=== PATIENT | male | born 1990 | race Caucasian/White ===

== ENCOUNTER 2017-10-17 14:41 | Outpatient (CLI) | payer OTHER | END 2017-10-17 14:42 | disposition home or self-care (01) | LOC: CTENTCT 14:41 | PROVIDERS: ATTEND Specialist | DX: J32.9 Chronic sinusitis, unspecified (principal) | CPT/HCPCS: 70486 ==

== ENCOUNTER 2017-10-20 09:08 | Day surgery (SDC) | payer OTHER ==
[2017-10-19 16:21] VITALS: BMI 36.2
[2017-10-20] MEDS ORDERED: Oxymetazoline HCl 0.05% ( 15 ML ) ONE (09:36)
[2017-10-20] MEDS ORDERED: Ciprofloxacin 0.2% Otic ONE ×2 (11:59)
[2017-10-20] MEDS ORDERED: Lidocaine 1% w/Epinephrine 1:200K 30 ML VIAL ONE (11:59)
[2017-10-20] MEDS ORDERED: Fentanyl 100 MCG/2 ML VIAL ONE (12:05)
[2017-10-20] MEDS ORDERED: Ondansetron HCl/PF 4 MG/2 ML Vial ONE ×2 (12:05→16:42)
[2017-10-20] MEDS ORDERED: Midazolam HCl 2 mg/2 ml Vial ONE (12:35)
[2017-10-20] MEDS ORDERED: methylPREDNISolone Acetate 40 mg/ml Vial ONE (14:01)
[2017-10-20] MEDS ORDERED: Hydrocodone-Acetamin 15 ML UDCUP ONE (16:21)
[2017-10-20] MEDS ORDERED: diphenhydrAMINE 50 MG/ML VIAL ONE (16:42)
[2017-10-20] MEDS ORDERED: PROPOFOL 200 MG/20 ML VIAL ONE (16:42)
[2017-10-20] MEDS ORDERED: Lidocaine 1% PF 5 ML VIAL ONE (16:42)
[2017-10-20] MEDS ORDERED: Glycopyrrolate 0.2 MG/ML 5 ML SYRINGE ONE (16:42)
[2017-10-20] MEDS ORDERED: Dexamethasone 20 MG/5 ML VIAL ONE (16:42)
[2017-10-20] MEDS ORDERED: PHENYLEPHRINE-NS 100 MCG/ML 10 ML SYRINGE ONE (16:42)
--- NOTE | 2017-10-20 18:06 | OP ---
PREOPERATIVE DIAGNOSES: Chronic sinusitis, reactive airways disease, nasal polyposis, chronic sinusi tis, hypertrophic inferior turbinates. POSTOPERATIVE DIAGNOSES: Chronic sinusitis, reactive airways disease, nasal polyposis, chronic sinus itis, hypertrophic inferior turbinates. PROCEDURES PERFORMED: 1. Stereotactic image guidance surgery using fusion. 2. Bilateral nasal endoscopy with maxillary antrostomy with removal of tissue. 3. Bilateral nasal endoscopy with sphenoidotomy with removal of tissue. 4. Bilateral nasal endoscopy with frontal sinusotomy with removal of tissue 5. Bilateral nasal endoscopy with total ethmoidectomy. 6. Bilateral nasal endoscopy with submucosal resection of inferior turbinates. PROCEDURE IN DETAIL: After consent was obtained, the patient was identified, brought to the operatin g room, and placed on the operating room table in the supine position. Consent was obtained, notifyi ng the patient of the possibility of additional infections, bleeding, brain injury, and eye/orbital i njury. The patient was placed on the operating room table, and general endotracheal anesthesia and i ntravenous access was obtained. The patient was then positioned, prepped and draped for endoscopic s inus surgery. Nasal preparation included trimming nasal vestibular hairs and spraying in topical Afr in. We then placed Afrin topical solution on nasal pledgets and strategically located them intranasa lly. The perinasal mucosa was injected with 1% lidocaine with 1:100,000 epinephrine in the submucope richondrial plane of the septum, lateral nasal wall, and anterior to the uncinate. The patient was t hen prepped and draped in a sterile fashion and positioned for endoscopic sinus surgery. Maxillary Antrostomy: The uncinate was then identified and the extent of the uncinate was appreciated by out-fracturing the uncinate with the ball-tip probe. We then used the sickle blade to disarticulate the uncinate from the lateral nasal wall. This was then removed with straight biting and upbiting punches with the remaining shrouds of mucosa and bony septum removed with the micro-debr ider. The natural os of the maxillary sinus was then identified and enlarged with the maxillary punc hes and back biting forceps. Sphenoidotomy: The anterior face of the sphenoid was identified and entered in its extreme anteroinferior aspect. A sphenoid punch was then used to enlarge the sphenoidotomy and no injury to the optic nerve or internal carotid artery occurred. Endoscopic Sinus Surgery: With the 0-degree endoscope, the patient underwent systematic nasal endosc opy. There were no suspicious internasal masses or lesions identified. We then focused our attentio n to the osteomeatal complex region under the middle turbinate. Total Ethmoidectomy: The anterior face of the ethmoid bulla was entered and with the micro-debrider, dissection continued posteriorly to the ground lamella. The limits of dissection inc luded the insertion of the middle turbinate, medial orbital wall, and base of skull. We similarly id entified the frontal recess and removed shrouds of bone and debris in that region to obtain patency i nto the agger nasi region and frontal recess. We then entered the ground lamella and its anteroinfer ior aspect and proceeded posteriorly, opening the posterior ethmoid air-cell system. Again, the limi ts of dissection included the base of skull and medial orbital wall. Outfracture of the Inferior Turbinates: The inferior turbinates were visualized under endoscopic vis ualization and outfractured with the elevator. The inferolateral edge of the inferior turbinate was then cauterized along its length with the suction cautery without difficulty. Outfracture & Cautery of the Inferior Turbinates: The inferior turbinates were visualized with a 0-d egree endoscope and outfractured with a Chris elevator. The inferior medial aspect was cauterized wi th the electrocautery. Hemostasis was obtained. After adequate airway was established, we turned ou r attention to the contralateral side and used a similar procedure. Again, a Chris elevator was used to outfracture inferior turbinates under endoscopic visualization. With a suction cautery, the free inferior medial aspect was cauterized under direct visualization along the length of the inferior tu rbinate. At this point, we then turned our attention to the contralateral side and proceeded with endoscopic s inus surgery. At the completion of the case, Rice keel splints were placed in the ethmoid cavities after the ethmoi dectomy. There were no complications. The patient tolerated the procedure well and was discharged t o the recovery room in stable condition prior to return to the preoperative Day Stay with [facility]. Prescriptions for pain medication and antibiotics were provided. The patient received intramuscular Depo-Medrol during the case. FINDINGS: Patient had extensive polyps and chronic bony changes due to the expansile nature of the p olyps. They were markedly inflamed and there was purulence encountered in both maxillary sinuses and sphenoid sinuses.
== END 2017-10-20 17:01 | disposition home or self-care (01) ==
LOC: SDC 09:08
PROVIDERS: ATTEND Specialist
PROC: 09TV8ZZ Resection of Left Ethmoid Sinus, Via Natural or Artificial Opening Endoscopic (ICD-10-PCS; principal; 2017-10-20)
PROC: 09BX8ZZ Excision of Left Sphenoid Sinus, Via Natural or Artificial Opening Endoscopic (ICD-10-PCS; principal; 2017-10-20)
PROC: 09SL8ZZ Reposition Nasal Turbinate, Via Natural or Artificial Opening Endoscopic (ICD-10-PCS; principal; 2017-10-20)
PROC: 09BQ8ZZ Excision of Right Maxillary Sinus, Via Natural or Artificial Opening Endoscopic (ICD-10-PCS; principal; 2017-10-20)
PROC: 09TU8ZZ Resection of Right Ethmoid Sinus, Via Natural or Artificial Opening Endoscopic (ICD-10-PCS; principal; 2017-10-20)
PROC: 8E09XBZ Computer Assisted Procedure of Head and Neck Region (ICD-10-PCS; principal; 2017-10-20)
PROC: 09BR8ZZ Excision of Left Maxillary Sinus, Via Natural or Artificial Opening Endoscopic (ICD-10-PCS; principal; 2017-10-20)
PROC: 09BW8ZZ Excision of Right Sphenoid Sinus, Via Natural or Artificial Opening Endoscopic (ICD-10-PCS; principal; 2017-10-20)
DX: J32.9 Chronic sinusitis, unspecified (principal); J45.909 Unspecified asthma, uncomplicated; J33.9 Nasal polyp, unspecified; J34.3 Hypertrophy of nasal turbinates; H60.91 Unspecified otitis externa, right ear; H65.23 Chronic serous otitis media, bilateral; Z79.52 Long term (current) use of systemic steroids; Z79.899 Other long term (current) drug therapy
CPT/HCPCS: J1030; J1100; J1200; J2001; J2250; J2405; J2704; J3010

== ENCOUNTER 2018-03-08 15:51 | Outpatient (CLI) | payer OTHER | END 2018-03-08 15:52 | disposition home or self-care (01) | LOC: BICRAD 15:51 | PROVIDERS: ATTEND Family Medicine | DX: R05 Cough (principal); J18.9 Pneumonia, unspecified organism | CPT/HCPCS: 71046 ==